=== PATIENT | male | born 1995 | race Caucasian/White ===

== ENCOUNTER 2021-05-09 15:45 | Emergency (ER) | payer MEDICAID ==
[~2021-05-09] VITALS: Ht 188 cm; Wt 99.8 kg
[2021-05-09 16:12] VITALS: BP_SYST 135
--- NOTE | 2021-05-09 17:00 | NUR ---
Dr Baez evaluating patient in the triage room
--- NOTE | 2021-05-09 17:02 | NUR ---
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
--- NOTE | 2021-05-09 17:10 | NUR ---
Dr Baez evaluating patient at bedside
--- NOTE | 2021-05-09 18:08 | NUR ---
Patient given written and verbal discharge instructions and verbalizes understanding. ER MD discussed with patient the results and treatment provided. Patient in stable condition. ID arm band removed. Rx of none given. Patient educated on pain management and to follow up with PMD. Pain Scale 0/10. Opportunity for questions provided and answered. Medication side effect fact sheet provided.
== END 2021-05-09 18:08 | disposition home or self-care (01) ==
LOC: SED 15:45
DX: T16.1XXA Foreign body in right ear, initial encounter (principal); J45.909 Unspecified asthma, uncomplicated; X58.XXXA Exposure to other specified factors, initial encounter; Y93.89 Activity, other specified; Y92.89 Other specified places as the place of occurrence of the external cause; Y99.8 Other external cause status
CPT/HCPCS: 99281